=== PATIENT | female | born 1945 | race Caucasian/White ===

== ENCOUNTER 2017-01-10 10:21 | Day surgery (SDC) | payer MEDICARE, OTHER ==
[~2017-01-10] VITALS: Ht 170.2 cm; Wt 68.0 kg
[~2017-01-10 10:21] MED LIST: AMLO10TA2 PO; DOXA8TAB63 PO; HYDR-3342 PO; LABE300T PO; LOSA1TAB17 PO; PIOG15TA4 PO; Will bring DOS
[2017-01-10 10:50] VITALS: BP 128/79
[2017-01-10] MEDS ORDERED: SODIUM CHLORIDE 0.9% 1,000 ML IV SCH (10:53)
[2017-01-10] MEDS ORDERED: VERAPAMIL PO (11:22)
[2017-01-10] MEDS ORDERED: IRBE300T16 PO (11:22)
[2017-01-10] MEDS ORDERED: HYDROXYZINE (11:23)
[2017-01-10] MEDS ORDERED: PROPOFOL 10 MG/ML, 20ML ONE (12:29)
[2017-01-10] MEDS ORDERED: DEXAMETHASONE 4 MG/ML, 1ML ONE (12:29)
[2017-01-10] MEDS ORDERED: ONDANSETRON 2MG/ML, 2ML ONE (12:29)
[2017-01-10] MEDS ORDERED: hydrALAzine 20 MG/ML, 1ML IV PRN (13:00)
[2017-01-10] MEDS ORDERED: FENTANYL PF 100 MCG/2ML IV PRN (13:00)
[2017-01-10] MEDS ORDERED: HYDROmorphone 1 MG/ML, 1ML IV PRN (13:00)
[2017-01-10] MEDS ORDERED: MEPERIDINE/PF 25MG/0.5ML IVPush PRN (13:00)
[2017-01-10] MEDS ORDERED: LABETALOL 5MG/ML, 20ML IV PRN (13:00)
[2017-01-10] MEDS ORDERED: ALBUTEROL SULFATE 2.5 MG/3 ML NPPB PRN (13:00)
[2017-01-10] MEDS ORDERED: MIDAZOLAM 1 MG/ML, 2ML IV PRN (13:00)
[2017-01-10] MEDS ORDERED: PROMETHAZINE 25 MG/ML, 1ML IV PRN (13:00)
[2017-01-10] MEDS ORDERED: OXYcodone 5 MG/5 ML ORAL.SOL UDC PO PRN (13:00)
[2017-01-10] MEDS ORDERED: ONDANSETRON 2MG/ML, 2ML IVPush PRN (13:00)
== END 2017-01-10 14:20 ==
LOC: OUT 10:21
PROVIDERS: ATTEND Internal Medicine Gastroenterology
DX: K63.5 Polyp of colon (principal); K57.30 Diverticulosis of large intestine without perforation or abscess without bleeding; K21.9 Gastro-esophageal reflux disease without esophagitis; I10 Essential (primary) hypertension; Z88.5 Allergy status to narcotic agent; Z88.8 Allergy status to other drugs, medicaments and biological substances
CPT/HCPCS: 36415; 45385; 80047; 88305; J1100; J2405; J2704; J7030

== ENCOUNTER 2019-06-04 07:42 | Day surgery (SDC) | payer MEDICARE, OTHER ==
[~2019-06-04] VITALS: Ht 170.2 cm; Wt 69.4 kg
[~2019-06-04 07:42] MED LIST changes: -AMLO10TA2 PO; +AMLO10TA8 PO; +HYDROXYZINE; +IRBE300T16 PO; -LABE300T PO; +LABE300T2 PO; -LOSA1TAB17 PO; +LOSA1TAB22 PO; +VERAPAMIL PO
[2019-06-04] MEDS ORDERED: LACTATED RINGERS 1,000 ML IV SCH (08:19)
[2019-06-04] MEDS ORDERED: SODIUM CHLORIDE 0.9% 1,000 ML IV SCH (08:19)
[2019-06-04] MEDS ORDERED: FURO80TA77 PO (08:22)
[2019-06-04] MEDS ORDERED: DOXE10CA PO (08:22)
[2019-06-04] MEDS ORDERED: HYDR50TA13 PO (08:22)
[2019-06-04] MEDS ORDERED: LIDOCAINE-MPF 1%, 2ML ONE (08:25)
[2019-06-04] MEDS ORDERED: LIDOCAINE-MPF 1%, 2ML INFIL ONE (08:30)
[2019-06-04 08:48] VITALS: BP 198/73
[2019-06-04 08:53] LABS: BASOPHILS # (AUTO) 0.03 x10^3/uL (0-0.1); BASOPHILS % (AUTO) 1 % (0-1); EOSINOPHILS # (AUTO) 0.09 x10^3/uL (0-0.4); EOSINOPHILS % (AUTO) 2 % (1-7); LYMPHOCYTES # (AUTO) 0.73 x10^3/uL (1-3.4); LYMPHOCYTES % (AUTO) 16 % (22-44); MD NO; MEAN CORPUSCULAR HGB CONC 32.9 g/dL (32.4-35.8); MEAN CORPUSCULAR VOLUME 100.2 fL (80-100); MEAN PLATELET VOLUME 8.1 fL (7.4-10.4); MONOCYTES # (AUTO) 0.44 x10^3/uL (0.2-0.8); MONOCYTES % (AUTO) 10 % (2-9); NEUTROPHILS # (AUTO) 3.26 x10^3/uL (1.8-6.8); NEUTROPHILS % (AUTO) 72 % (42-75); PLATELET COUNT 196 x10^3/uL (130-400); RED BLOOD COUNT 2.91 x10^6/uL (3.82-5.3); RED CELL DISTRIBUTION WIDTH 15.1 % (9.6-15.2)
[2019-06-04 08:56] VITALS: BP 179/73
[2019-06-04 09:00] LABS: ANION GAP 10 mmol/L (5-15); CALCIUM 9.4 mg/dL (8.5-10.1); CHLORIDE 107 mmol/L (98-107); INTERNATIONAL NORMALIZED RATIO 1.09 (0.93-1.1); PROTHROMBIN TIME 11.4 Seconds (9.6-11.5)
[2019-06-04] MEDS ORDERED: PROPOFOL 10 MG/ML, 20ML ONE (09:44)
[2019-06-04] MEDS ORDERED: hydrALAzine 20 MG/ML, 1ML ONE (10:26)
[2019-06-04] MEDS ORDERED: OXYcodone 5 MG/5 ML ORAL.SOL UDC PO PRN (10:30)
[2019-06-04] MEDS ORDERED: HALOPERIDOL 5 MG/ML IV PRN (10:30)
[2019-06-04] MEDS ORDERED: ALBUTEROL SULFATE 2.5 MG/3 ML NPPB PRN (10:30)
[2019-06-04] MEDS: hydrALAzine 20 MG/ML, 1ML IV PRN ×2 (10:30→10:43)
[2019-06-04] MEDS ORDERED: LABETALOL 5MG/ML, 20ML IV PRN (10:30)
[2019-06-04] MEDS ORDERED: HYDROmorphone 2 MG/ML, 1ML IVPush PRN (10:30)
[2019-06-04] MEDS ORDERED: FENTANYL PF 100 MCG/2ML IV PRN (10:30)
[2019-06-04] MEDS ORDERED: PROMETHAZINE 25 MG/ML, 1ML IV PRN (10:30)
== END 2019-06-04 12:10 | disposition home or self-care (01) ==
LOC: OUT 07:42
PROVIDERS: ATTEND Internal Medicine Gastroenterology
DX: K59.00 Constipation, unspecified (principal); K57.30 Diverticulosis of large intestine without perforation or abscess without bleeding; K64.4 Residual hemorrhoidal skin tags; I12.0 Hypertensive chronic kidney disease with stage 5 chronic kidney disease or end stage renal disease; N18.6 End stage renal disease; E78.5 Hyperlipidemia, unspecified; Z79.899 Other long term (current) drug therapy; Z86.010 Personal history of colon polyps; Z88.5 Allergy status to narcotic agent; Z99.2 Dependence on renal dialysis; Z98.84 Bariatric surgery status; Z83.3 Family history of diabetes mellitus; Z82.49 Family history of ischemic heart disease and other diseases of the circulatory system; Z80.9 Family history of malignant neoplasm, unspecified
CPT/HCPCS: 36415; 45380; 80048; 85025; 85610; 88305; 93005; J0360; J2704; J7030